=== PATIENT | male | born 1995 | race Caucasian/White ===

== ENCOUNTER → 2022-05-12 | Outpatient (REF) | payer BC | LOC: M LAB REF 16:09 | PROVIDERS: ATTEND Internal Medicine | DX: R19.7 Diarrhea, unspecified (principal) ==

== ENCOUNTER → 2022-08-13 | Outpatient (REF) | payer BC ==
[2022-08-13 17:41] LABS: PERCENT SATURATION 32.8 % (19.7-50.0)
== END ==
LOC: M LAB REF 16:00
PROVIDERS: ATTEND Internal Medicine
DX: K76.0 Fatty (change of) liver, not elsewhere classified (principal)